=== PATIENT | female | born 1980 | race Two or more races ===

== ENCOUNTER 2018-06-27 09:39 | Emergency (ER) | payer OTHER ==
[~2018-06-27] VITALS: Ht 167.6 cm; Wt 99.8 kg
[2018-06-27] MEDS ORDERED: KETOROLAC TROMETHAMINE 30 MG/ML VIAL IV STA (09:56)
[2018-06-27] MEDS ORDERED: MAGNESIUM/ALUMINUM/SIMETHICONE 30 ML UDC PO ONE (10:00)
[2018-06-27] MEDS ORDERED: LIDOCAINE VISC 2% SOLN 15 ML UDC PO ONE (10:00)
[2018-06-27] MEDS ORDERED: POTASSIUM CHLORIDE 20 MEQ TAB CR PO STA (10:48)
--- NOTE | 2018-06-27 11:17 | Diagnostic Imaging Report ---
Frontal and lateral views of the chest. HISTORY: Chest pain COMPARISON: None available. DISCUSSION: Lungs: The lungs are well inflated. No evidence of a consolidative pneumonia or pulmonary alveolar edema. Pleura: No pleural effusion or pneumothorax. Heart and mediastinum: The cardiomediastinal silhouette appears unremarkable. Bones: No acute osseous lesion. IMPRESSION: No acute radiographic abnormality. Signed by: Dr. Jeff Acuña D.O., M.M.M. on 06/27/2018 11:13 AM
[2018-06-27 11:42] VITALS: BP 142/88
== END 2018-06-27 11:44 | disposition home or self-care (01) ==
LOC: FSED 09:39
DX: R07.89 Other chest pain (principal); R11.0 Nausea; K21.0 Gastro-esophageal reflux disease with esophagitis; I10 Essential (primary) hypertension; Z86.718 Personal history of other venous thrombosis and embolism
CPT/HCPCS: 71046; 80053; 81003; 81025; 84484; 85025; 85379; 93005; 99284; J1885